=== PATIENT | male | born 1985 | race American Indian/Alaskan Native ===

== ENCOUNTER 2019-09-02 07:55 | Emergency (ER) | payer SELFPAY ==
[2019-09-02] MEDS ORDERED: ONDANSETRON 4 MG ODT TAB PO ONE (09:14)
--- NOTE | 2019-09-02 09:15 | Emergency Department Report ---
ED Dizziness HPI - General Stated Complaint: NAUSEA/VOMITING Time Seen by Provider: 09/02/19 09:08 Source: patient Mode of arrival: Stretcher Limitations: No Limitations - History of Present Illness Initial Comments: Mr. Mckeon is a 34-year-old male with history of hypertension who presents with lightheadedness nausea since 2 AM after waking up from sleep. He denies headache. Denies paresthesias. Denies syncope. He arrived per EMS. He felt that his blood pressure was elevated. Blood pressure according to EMS 190/100. 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 Has had elevated blood pressure readings several times in doctors offices in hospital. Has not been prescribed medication. 3 weeks ago seen for similar symptoms at [facility]. Required 3 medications to decrease his blood pressure. He was evaluated at a hospital in [place] for possible mini stroke. For 20 minutes or so, he had slurred speech and right-sided weakness. He may have stayed overnight he cannot recall. MD Complaint: lightheadedness -: Gradual, This morning Timing: awoke with symptoms History of Same: Yes History of Trauma: No Severity: mild Improves With: rest Worsens With: nothing Associated Symptoms: other (Nausea) - Related Data Home Medications Medication Instructions Recorded Confirmed Last Taken Invega 234 mg IM Q3W 01/22/16 01/22/16 Unknown Previous Rx's Medication Instructions Recorded Last Taken Type Azithromycin [Zithromax TAB] 500 mg PO QDAY #3 tablet 01/22/16 Unknown Rx amLODIPine 5 mg PO DAILY #30 tab 09/02/19 Unknown Rx hydroCHLOROthiazide [HCTZ] 25 mg PO QDAY #30 tablet 09/02/19 Unknown Rx Allergies Allergy/AdvReac Type Severity Reaction Status Date / Time No Known Allergies Allergy Unverified 01/22/16 00:18 ED Review of Systems ROS: Stated complaint: NAUSEA/VOMITING Other details as noted in HPI Comment: All other systems reviewed and negative Constitutional: denies: fever, malaise Respiratory: denies: orthopnea Cardiovascular: denies: chest pain Gastrointestinal: denies: abdominal pain, nausea, vomiting Neurological: denies: headache, weakness, numbness, paresthesias, confusion ED Past Medical Hx - Past Medical History Previous Medical History?: Yes Hx Hypertension: Yes Hx Psychiatric Treatment: Yes (schizophrenia) - Social History Smoking Status: Current Every Day Smoker Substance Use Type: Alcohol - Medications Home Medications: Home Medications Medication Instructions Recorded Confirmed Last Taken Type Azithromycin [Zithromax TAB] 500 mg PO QDAY #3 tablet 01/22/16 Unknown Rx Invega 234 mg IM Q3W 01/22/16 01/22/16 Unknown History amLODIPine 5 mg PO DAILY #30 tab 09/02/19 Unknown Rx hydroCHLOROthiazide [HCTZ] 25 mg PO QDAY #30 tablet 09/02/19 Unknown Rx ED Physical Exam - General General appearance: alert, in no apparent distress - Head Head exam: Present: atraumatic, normocephalic - Eye Eye exam: Present: normal appearance - ENT ENT exam: Present: mucous membranes moist - Neck Neck exam: Present: normal inspection, full ROM - Respiratory Respiratory exam: Present: normal lung sounds bilaterally. Absent: respiratory distress, wheezes, rales, rhonchi - Cardiovascular Cardiovascular Exam: Present: regular rate, normal rhythm, normal heart sounds. Absent: systolic murmur, diastolic murmur, rubs, gallop - GI/Abdominal GI/Abdominal exam: Present: soft, normal bowel sounds. Absent: distended, tenderness, guarding, rebound - Rectal Rectal exam: Present: deferred - Extremities Exam Extremities exam: Present: normal inspection - Neurological Exam Neurological exam: Present: alert, oriented X3, CN II-XII intact, normal gait. Absent: motor sensory deficit - Expanded Neurological Exam Expanded Patient oriented to: Present: person, place, time Speech: Present: fluid speech Cranial nerves: EOM's Intact: Normal Cerebellar function: Finger to Nose: Normal Upper motor neuron: Sacha Neglect: Normal Sensory exam: Upper Extremity Light Touch: Normal, Upper Extremity Pin Prick: Normal Motor strength exam: RUE: 5, LUE: 5, RLE: 5, LLE: 5 Best Eye Response (Kelly): (4) open spontaneously Best Motor Response (Kelly): (6) obeys commands Best Verbal Response (Kelly): (5) oriented [place] Total: 15 - Psychiatric Psychiatric exam: Present: normal affect, normal mood - Skin Skin exam: Present: warm, dry, intact, normal color. Absent: rash ED Course Vital Signs 09/02/19 09/02/19 09/02/19 09:14 09:16 09:39 Temperature 98.8 F Pulse Rate 100 H 97 H Respiratory 18 Rate Blood Pressure 160/111 160/111 151/96 O2 Sat by Pulse 98 98 Oximetry ED Medical Decision Making - EKG Data -: EKG Interpreted by Me EKG shows normal: sinus rhythm, axis, intervals, QRS complexes, ST-T waves Rate: normal - EKG Data Interpretation: normal EKG - Medical Decision Making Mr. Ribeiro presents with hypertensive urgency lightheadedness nausea without indication of acute coronary syndrome CVA arrhythmia. Blood pressure control with p.o. labetalol improved symptoms. I have prescribed amlodipine hydrochlorothiazide. Strongly recommended PCP follow-up. Strongly recommended the cessation of tobacco use. Normal EKG Repeat blood pressure prior to discharge 140/97 repeat heart rate 84. Patient is currently symptom-free. He plans to obtain a primary care physician when he obtains health insurance in 30 days. Critical care attestation.: If time is entered above; I have spent that time in minutes in the direct care of this critically ill patient, excluding procedure time. ED Disposition Clinical Impression: Hypertensive urgency Disposition: [id number] TO HOME OR SELFCARE Is pt being admited?: No Does the pt Need Aspirin: No Condition: Stable Instructions: How to Stop Smoking (ED), Hypertension (ED) Prescriptions: amLODIPine 5 mg PO DAILY #30 tab hydroCHLOROthiazide [HCTZ] 25 mg PO QDAY #30 tablet Referrals: PRIMARY CARE, [Primary Care Provider] - 3-5 Days Forms: Work/School Release Form(ED)
[2019-09-02 10:14] VITALS: BP 140/97
== END 2019-09-02 10:17 | disposition home or self-care (01) ==
LOC: ED 07:55
DX: I16.0 Hypertensive urgency (principal); I10 Essential (primary) hypertension; F20.9 Schizophrenia, unspecified; F17.200 Nicotine dependence, unspecified, uncomplicated; Z79.899 Other long term (current) drug therapy
CPT/HCPCS: 93005; 93010; Q0162